=== PATIENT | male | born 1985 | race Hispanic/Latino ===

== ENCOUNTER 2022-01-30 06:28 | Day surgery (SDC) | payer BC ==
[2022-01-23 13:04] LABS: BASOPHILS % (AUTO) 0.4 % (0.0-5.0); EOSINOPHILS % (AUTO) 1.4 % (0.0-8.0); HEMATOCRIT 43.7 % (42-54); LYMPHOCYTES % (AUTO) 31.6 % (21.0-51.0); MEAN CORPUSCULAR HEMOGLOBIN 30.6 pg (27.0-33.0); MEAN CORPUSCULAR HGB CONC 34.3 g/dL (32.0-36.0); MEAN CORPUSCULAR VOLUME 89.2 fL (79-99); MONOCYTES % (AUTO) 9.3 % (3.0-13.0); NEUTROPHILS % (AUTO) 56.8 % (40.0-77.0); PLATELET COUNT (AUTO) 324 K/uL (130-400); WHITE BLOOD COUNT (AUTO) 10.8 K/uL (4.8-10.8)
[2022-01-23 13:12] LABS: BILIRUBIN,TOTAL 0.4 mg/dL (0.2-1.0); POTASSIUM 3.8 mmol/L (3.5-5.1); TOTAL PROTEIN, SERUM 7.9 g/dL (6.0-8.3)
[2022-01-23 13:18] LABS: INR 0.99 (0.85-1.15); PROTHROMBIN TIME 10.8 SEC (9.6-11.6)
[2022-01-23 13:19] LABS: PARTIAL THROMBOPLASTIN TIME 28.3 SEC (26.3-35.5)
[2022-01-29 09:33] VITALS: BP 136/79
[~2022-01-30] VITALS: Ht 175.3 cm; Wt 119.4 kg
[2022-01-30] VITALS (16 sets, daily range): BP systolic 113–135; BP diastolic 66–81
[2022-01-30] MEDS ORDERED: FENTANYL CITRATE PF 50 MCG/1 ML 2ML VIAL ONE ×3 (07:01→09:00)
[2022-01-30] MEDS ORDERED: PROPOFOL 10 MG/ML 20ML VIAL IV ONE ×2 (07:01→08:31)
[2022-01-30] MEDS ORDERED: ROCURONIUM 10MG/1ML SYR 10 MG/ML ML ONE (07:01)
[2022-01-30] MEDS ORDERED: MIDAZOLAM HCL 1 MG/ML 2ML VIAL ONE (07:02)
[2022-01-30] MEDS ORDERED: LIDOCAINE PF 100MG/5ML (2%) SYRINGE 5ML ONE (07:02)
[2022-01-30] MEDS ORDERED: MEPERIDINE-PF 25 MG/ML SYG ONE (07:02)
[2022-01-30] MEDS ORDERED: LACTATED RINGERS 1000ML 1,000 ML IV ONE (07:03)
[2022-01-30] MEDS ORDERED: FAMOTIDINE 20MG VIAL IV ONE (07:11)
[2022-01-30] MEDS ORDERED: ONDANSETRON 4MG INJ ONE (07:54)
[2022-01-30] MEDS ORDERED: CEFAZOLIN SODIUM 1 GM VIAL ONE (08:05)
[2022-01-30] MEDS ORDERED: BUPIVACAINE/PF 0.25% 30ML VIAL IJ ONE (08:07)
[2022-01-30] MEDS ORDERED: NEOMY SULF/BACITRAC ZN/POLY OINT 30GM TUBE TP ONE (08:07)
== END 2022-01-30 11:30 | disposition home or self-care (01) ==
LOC: DAH 06:28
PROVIDERS: ATTEND Urology Pediatric Urology
DX: N47.1 Phimosis (principal); N48.1 Balanitis; K21.9 Gastro-esophageal reflux disease without esophagitis; E66.9 Obesity, unspecified; Z83.3 Family history of diabetes mellitus; Z80.9 Family history of malignant neoplasm, unspecified; Z79.01 Long term (current) use of anticoagulants; Z79.899 Other long term (current) drug therapy; Z68.38 Body mass index [BMI] 38.0-38.9, adult
CPT/HCPCS: 36415; 54150; 71045; 80053; 85025; 85610; 85730; 87088; 87635; 93005; A4215; A4216; A4221; A4222; A4223; A4606; A4663; A4930; A6260; A6402; C9803; G0168; J0690; J2001; J2175; J2250; J2405; J2704 ×2; J3010 ×3; J3490 ×2; J7120